=== PATIENT | male | born 1955 | race Caucasian/White ===

== ENCOUNTER 2024-12-24 08:36 | Day surgery (SDC) | payer MEDICARE, OTHER ==
[2024-12-24] VITALS (13 sets, daily range): BP systolic 111–156; BP diastolic 78–115
[~2024-12-24] VITALS: Ht 182.9 cm; Wt 94.4 kg
[~2024-12-24 08:36] MED LIST: ATOR20 PO; BEET ROOT500 MG PO; BERBERINE500 MG PO; EUTHYROX175 MCG PO
[2024-12-24] MEDS ORDERED: Chlorhexidine Mouth Care 15 ML UDC MT SCH (08:50)
[2024-12-24] MEDS ORDERED: Ropivacaine 0.5% HCl/Pf 123.125 MG,EPINEPHrine HCL 0.25 MG,Ketorolac Tromethamine 15 MG... INFIL SCH (08:50)
[2024-12-24] MEDS ORDERED: CeFAZolin Sodium 2,000 MG in NS 100 ML IV SCH ×2 (08:50→19:00)
[2024-12-24] MEDS ORDERED: Tranexamic Acid 100 ML IV SCH (08:53)
--- NOTE | 2024-12-24 08:55 | NUR ---
Ambulatory in Day SurgeryPre-Op teaching done. Pt verbalizes understanding. History, Chart, Medications and Allergies reviewed before start of procedure.Patient confirms NPO status and agrees with scheduled surgery. Patient reports completing Chlorhexadine shower X2 prior to admission to hospital.
[2024-12-24] MEDS ORDERED: L-THEANINE (09:24)
--- NOTE | 2024-12-24 09:55 | NUR ---
BP [id number]/[id number] PT REPORTS HE TAKES BEET SUPPLEMENTS TO TREAT HIS HIGH BP AND THAT RECENTLY IN THE OFFICE THE "TOP # WAS ONLY 113". PT ENCOURAGE TO MONITOR AT HOME IN THE FUTURE AND F/U W/PCP.
--- NOTE | 2024-12-24 09:57 | NUR ---
DR. MUKHERJEE NOTIFIED OF INCREASED BP
[2024-12-24] MEDS ORDERED: Ondansetron HCl 2 MG / ML 2ML Vial IV PRN ×2 (10:30→13:25)
[2024-12-24] MEDS ORDERED: FentaNYL Citrate 50 MCG/ML 2 ML Injection ONE (10:33)
[2024-12-24] MEDS ORDERED: Midazolam HCl 1MG / ML 2ML Vial ONE (10:34)
[2024-12-24] MEDS ORDERED: Rocuronium Bromide 10 MG/ML 5ML Injection IV ONE ×2 (10:35→11:10)
[2024-12-24] MEDS ORDERED: HYDROmorphone HCl/Pf 1MG SYR IV PRN ×2 (10:35→13:25)
[2024-12-24] MEDS ORDERED: Metoclopramide HCl 5MG / ML 2ML Vial IV PRN (10:35)
[2024-12-24] MEDS ORDERED: Magnesium Hydroxide Conc 10 ML UDC PO PRN (10:40)
[2024-12-24] MEDS ORDERED: Prochlorperazine Edisylate 10 mg Vial IV PRN (10:40)
[2024-12-24] MEDS ORDERED: Dexamethasone Sod Phos 10 MG/ML 1ML VIAL ONE (10:50)
[2024-12-24] MEDS ORDERED: Phenylephrine HCl 100 MCG/ML-NS 10MLSYR (1MG/10ML) ONE (11:09)
[2024-12-24] MEDS ORDERED: Ondansetron HCl 2 MG / ML 2ML Vial ONE (12:49)
[2024-12-24] MEDS ORDERED: Sugammadex Sodium 200 MG/2ML SDV (100 MG/ML) ONE (12:49)
[2024-12-24] MEDS ORDERED: FentaNYL Citrate 50 MCG/ML 2 ML Injection IV PRN (13:25)
--- NOTE | 2024-12-24 13:55 | NUR ---
ARRIVAL TO UNIT S/P L POORNIMA PT ARRIVED TO UNIT AT 1355. SENSATION NOT FULLY RETURNED. ENCOURAGED T/C/D/B. PT ON ROOM AIR. TOLERATING PO INTAKE. CAP REFILL <3 SECONDS. STRONG PULSES. THREE SURGICAL SITE DRESSINGS C/D/I.
--- NOTE | 2024-12-24 16:27 | NUR ---
SUMMARY REPORT FROM MELISSA CHAVEZ, PATIENT IS POD#0 R POORNIMA, 3 SITES ON HIP OF TELFA AND TEGADERM. C/D/I. AOX4, SPINAL BLOCK HAS NOT WORN OFF YET, STILL REPORTS NUMBNESS TO RLE. NO VOID YET. IVF RUNNING. TOLERATES PO INTAKE. PAIN AT 3/10 DENIES N/V. VSS. ABLE TO MAKE NEEDS KNOWN. ICE, SCD'S AND MARISELA HOSE IN PLACE.
[2024-12-24] MEDS ORDERED: Ketorolac Tromethamine 15mg Vial IV SCH (18:00)
[2024-12-25 00:42] VITALS: BP 145/100
--- NOTE | 2024-12-25 04:16 | NUR ---
SHIFT SUMMARY DANIELA WAS ALERT AND FULLY ORIENTED ON ASSESSMENT. PT PAIN WELL MANAGED. PT ABLE TO AMBULATE AND VOID APPROPRIATELY. SENSATION AND CIRCULATION INTACT TO BLE'S. DRESSINGS C/D/I. NO ACUTE EVENTS TONIGHT, PT MODERATELY B/P ELEVATED SINCE AFTERNOON, CONTINUING TO MONITOR.
[2024-12-25 05:39] VITALS: BP 126/86
[2024-12-25] MEDS ORDERED: Levothyroxine Sodium 0.175 MG TAB PO SCH (06:00)
[2024-12-25 07:01] VITALS: BP 128/87
[2024-12-25] MEDS ORDERED: RED BEET PO SCH (09:00)
[2024-12-25] MEDS ORDERED: XARELTO20 MG PO (09:13)
--- NOTE | 2024-12-25 11:29 | NUR ---
DISCHARGE: PT WORKED WITH THERAPY, GOOD FOR DC. PACKET PRINTED AND PT EDUCATED IV DC'D WNL TIP INTACT. PT LEFT UNIT VIA WHEELCHAIR WITH THIS RN AT ABOUT 1000
== END 2024-12-25 10:40 | disposition home or self-care (01) ==
LOC: ORSCMMR 08:36 → ORD 08:36 → ORSCMMR 08:39 → ORD 11:00 → SURS 13:44 → ORD 23:00
PROVIDERS: Orthopaedic Surgery
PROC: 0SR90JA Replacement of Right Hip Joint with Synthetic Substitute, Uncemented, Open Approach (ICD-10-PCS; principal; 2024-12-24 11:00)
DX: M16.11 Unilateral primary osteoarthritis, right hip (principal); E03.9 Hypothyroidism, unspecified; E78.5 Hyperlipidemia, unspecified; Z79.899 Other long term (current) drug therapy; Z85.850 Personal history of malignant neoplasm of thyroid; F90.9 Attention-deficit hyperactivity disorder, unspecified type
CPT/HCPCS: 72170; 97110; 97116; 97162; 97165; 97535; A9270; C1713; C1776; J0166; J0690; J0735; J1100; J1885; J2250; J2371; J2405; J2704; J2795; J3010; J7120